=== PATIENT | male | born 1995 ===

== ENCOUNTER 2018-07-23 12:11 | Outpatient (CLI) | payer OTHER ==
--- NOTE | 2018-07-23 13:59 | XRay Report ---
CHEST TWO VIEWS: 07/23/18 12:11:00 CLINICAL: Left-sided rib pain COMPARISON: None FINDINGS: Normal heart and pulmonary vasculature. The lungs are normally expanded and clear.The bones and soft tissues are normal. IMPRESSION: Normal chest.
== END 2018-07-23 12:12 | disposition home or self-care (01) ==
LOC: SPVIMAG 12:11
PROVIDERS: ATTEND Internal Medicine
DX: R07.81 Pleurodynia (principal)
CPT/HCPCS: 71046